=== PATIENT | male | born 1955 | race Caucasian/White ===

== ENCOUNTER → 2016-11-03 | Day surgery (SDC) | payer SELFPAY ==
[~2016-11-03] VITALS: Ht 182.9 cm; Wt 104.8 kg
[~2016-11-03] MED LIST: ALPHAGAN 05 ML/1 BOT OPHTH; COLACE100 MG PO; COSOPT EYE DROP10 ML OPHTH; DESYREL150 MG PO; IRON65 PO; LEVOTHROID (S100 MCG PO; LIPITOR10 MG PO; NOVOLOG MI100 UNIT/2 SUB-Q; NOVOLOG MI100 UNIT/M SUB-Q; PRILOSEC20 MG PO; THERA-VITE W/ B1 TAB PO; TIMOPTIC XE 0.5%5 ML OPHTH; VITAMIN B-1100 M1 PO; XALATAN2.5 ML OPHTH; ZOLOFT50 MG PO
== END | disposition disaster alternative care site (69) ==
LOC: GPOC 10-23 09:00 → GEND 07:49 → GPOC 09:00
PROC: 0DBP8ZX Excision of Rectum, Via Natural or Artificial Opening Endoscopic, Diagnostic (ICD-10-PCS; principal; 2016-11-03)
PROC: 0DBL8ZZ Excision of Transverse Colon, Via Natural or Artificial Opening Endoscopic (ICD-10-PCS; 2016-11-03)
PROC: 0DBN8ZZ Excision of Sigmoid Colon, Via Natural or Artificial Opening Endoscopic (ICD-10-PCS; 2016-11-03)
PROC: 0DJ08ZZ Inspection of Upper Intestinal Tract, Via Natural or Artificial Opening Endoscopic (ICD-10-PCS; 2016-11-03)
DX: Z12.11 Encounter for screening for malignant neoplasm of colon (principal); D12.5 Benign neoplasm of sigmoid colon; K63.5 Polyp of colon; K74.60 Unspecified cirrhosis of liver; I85.10 Secondary esophageal varices without bleeding; I86.4 Gastric varices; K62.6 Ulcer of anus and rectum; K62.89 Other specified diseases of anus and rectum; Z86.010 Personal history of colon polyps; E11.9 Type 2 diabetes mellitus without complications; K21.9 Gastro-esophageal reflux disease without esophagitis; E03.9 Hypothyroidism, unspecified; Z88.0 Allergy status to penicillin; Z98.890 Other specified postprocedural states
CPT/HCPCS: J0744; J7030

== ENCOUNTER 2016-11-11 11:43 | Observation (INO) | payer SELFPAY ==
[~2016-11-11] VITALS: Ht 182.9 cm; Wt 104.5 kg
--- NOTE | ~2016-11-11 | DS ---
[facility] AGE: 61 Y [address] ROOM: [place] [address] LOCATION: GPCU ADMIT DATE: 11/11/2016 Discharge Summary DISCHARGE DATE: 11/12/2016 FAMILY PHYSICIAN: Miguelina Alvarez ATTENDING PHYSICIAN: Coy Dhaliwal This is an observation discharge. FINAL DIAGNOSES: 1. 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 2. History of hepatitis C. 3. Thrombocytopenia. 4. Diabetes mellitus type 2, insulin using. 5. Hypothyroidism. The patient was admitted after having a TIPS procedure done by interventional radiologist, Dr. Coy Dhaliwal. HOSPITAL COURSE: The patient was admitted overnight after having the TIPS procedure. Hospitalist Service was asked to admit the patient and manage his medical problems. He was placed on PCU. He was resumed on his home medications and given sliding scale insulin for his blood sugars. His evening dose of insulin was cut in half in order to help and to ensure how well he was going to eat. An ultrasound was performed on the morning of the . There was some question of whether there was a clotting of the TIPS. I spoke with Dr. Dhaliwal personally and he stated that at this point, it was okay to go ahead and discharge the patient with a followup ultrasound in 1 week. I did share this with the patient, he did voice understanding. DISCHARGE INSTRUCTIONS: He is discharged to home. He will have an ultrasound which has been set up for November 18 at 10 a.m. his. MEDICATIONS: 1. Synthroid 1000 mcg daily. 2. Omeprazole 20 mg daily. 3. Zoloft 50 mg daily. 4. NovoLog 70/30 Mix 30 units subcutaneously in the morning 20 subcutaneously in the evening. 5. Trazodone 150 mg at bedtime. 6. Colace 100 mg daily. 7. Atorvastatin 10 mg daily. 8. Iron 65 mg twice daily. 9. Multivitamin daily. 10. Thiamine 100 mg daily. 11. Xalatan drops 1 drop at bedtime, both eyes. 12. Cosopt 1 drop every night at bedtime, both eyes. PATIENT'S NAME: [facility] AGE: 61 Y [address] ROOM: [place] [address] [facility] AD[facility] DATE: 11/11/2016 Discharge Summary DISCHARGE DATE: 11/12/2016 FAMILY PHYSICIAN: Miguelina Alvarez ATTENDING PHYSICIAN: Coy Dhaliwal. Alphagan 0.2% one drop twice daily, each eye. Overall prognosis is fair. The patient did voice understanding. ANA CRISTINA SHARMA MD LAW/modl /[id number] CC: MD Miguelina Mcguire PA d: 11/13/16131 t: 11/13/161920, DISCHARGE SUMMARY
--- NOTE | ~2016-11-11 | HP ---
PATIENT'S NAME: [facility] AGE: 61 Y [address] ROOM: [place] [address] LOCATION: GPCU ADMIT DATE: 11/11/2016 History & Physical DISCHARGE DATE: FAMILY PHYSICIAN: Miguelina Alvarez ATTENDING PHYSICIAN: MICHAEL DHALIWAL DATE OF SERVICE: CHIEF COMPLAINT: Postoperative observation. HISTORY OF PRESENT ILLNESS: A 61-year-old gentleman with a past medical history of cirrhosis, thrombocytopenia, who recently underwent upper endoscopy, which revealed gastric varices, had a procedure planned TIPS with Dr. Michael Dhaliwal today. Procedure went uneventfully and Dr. Cespedes requested the patient to be observed overnight in the hospital. On my encounter, the patient is alert, complaining of some mild abdominal pain, rating is 3/10, in the epigastric region. No fever or chills. No shortness of breath. No cough or sputum production. He denied any headache, any trouble with the eyes, any diarrhea, constipation, or any extremity swelling. REVIEW OF SYSTEMS: All other systems reviewed and were negative except what is mentioned in the HPI. PAST MEDICAL HISTORY: 1. Cirrhosis, secondary to alcohol liver disease. 2. History of hepatitis C. 3. Thrombocytopenia. 4. Type 2 diabetes mellitus, insulin dependent. 5. Hypothyroidism. PAST SURGICAL HISTORY: Colonoscopy 2 years ago. SOCIAL HISTORY: Never a smoker, 35year of alcohol use, quit 7 years ago. Still working. MEDICATIONS: Please see MAR. ALLERGIES: PENICILLIN. PATIENT'S NAME: [facility] AGE: 61 Y [address] ROOM: [place] [address] LOCATION: GPCU ADMIT DATE: 11/11/2016 History & Physical DISCHARGE DATE: FAMILY PHYSICIAN: iMguelina Alvarez ATTENDING PHYSICIAN: MICHAEL DHALIWAL FAMILY HISTORY: Negative for any liver disease. PHYSICAL EXAMINATION: VITAL SIGNS: 137/72, 51, afebrile, 16. GENERAL: No acute distress. Alert and oriented x3. HEENT: Head: Atraumatic, normocephalic. Eyes: Nonicteric. No pallor. Oropharynx: Moist mucous membranes. CARDIOVASCULAR: S1, S2. No murmurs, gallops, or rubs. NECK: Right supraclavicular area, postsurgically dressed. ABDOMEN: Soft, nontender, nondistended. Bowel sounds are present. EXTREMITIES: No clubbing, cyanosis, or edema. SKIN: Multiple tattoos noted. PSYCH: Normal affect, mood, and speech. NEURO: Cranial nerves 2 through 12 are intact. No motor or sensory deficit. MUSCULOSKELETAL: No muscle tenderness noted. No joint swelling present. LABORATORY DATA: 1. CBC done today showed hemoglobin of 15, white count of 4, and platelets of 49. INR 1.14. 2. Accu-Chek showed a glucose of 163. ASSESSMENT: 1. Cirrhosis. 2. Type 2 diabetes mellitus, insulin dependent. 3. Gastroesophageal reflux disease. 4. History of hepatitis C. 5. Status post transjugular intrahepatic portosystemic shunt. 6. Esophageal varices. 7. History of hypokalemia. PLAN: We are going to observe this patient overnight. We are going to obtain labs in the morning. Restart home medications. Decrease the evening dose of NPH 70/30 which the patient is taking at home. A.c. q.h.s. Accu-Cheks. SCDs for DVT prophylaxis. Further management depend on his course overnight in the hospital. Anticipate discharge in the morning. MD CHRISTOPHER TAMEZ/kelsi PATIENT'S NAME: [facility] AGE: 61 Y [address] ROOM: [place] [address] LOCATION: GPCU ADMIT DATE: 11/11/2016 History & Physical DISCHARGE DATE: FAMILY PHYSICIAN: Miguelina Alvarez ATTENDING PHYSICIAN: MICHAEL DHALIWAL /[id number] D: T: HISTORY & PHYSICAL
[2016-11-11 12:39] LABS: BASOPHIL % 0.3 %; EOSINOPHIL # 0.1 K/uL (0.0-0.5); EOSINOPHIL % 3.3 %; HEMOGLOBIN 15.8 g/dL (11.0-16.0); IMMATURE GRANULOCYTE % 0.5 %; LYMPHOCYTE # 0.8 K/uL (0.8-4.0); LYMPHOCYTE % 18.9 %; MCH 32.5 pg (27.0-34.0); MCHC 35.9 gm/dL (32.0-36.5); MCV 90.5 fl (83.0-98.0); MONOCYTE # 0.3 K/uL (0.0-1.0); MONOCYTE % 8.3 %; MPV 11.9 fl (9.4-12.4); NEUTROPHIL # (ANC) 2.7 K/uL (1.4-9.0); NEUTROPHIL % 68.7 %; NRBC % 0 /100WBC (0-0.00); PLATELET COUNT 49 K/uL (150-450); RBC 4.86 M/uL (3.50-5.50); RDW-CV 12.8 % (11.9-14.6)
[2016-11-11 12:47] LABS: INR - (THERAPEUTIC) 1.14 (0.92-1.07)
--- NOTE | 2016-11-11 19:15 | NUR ---
Significant Event: PATIENT UP TO FLOOR FROM PACU AT 1800. DRESSINGS TO R) IJ SITE DRY/INTACT WITH SCANT AMOUNT OF DRAINAGE, DRESSING TO R) GROIN INTACT WITH SCANT AMOUNT OF DRAINAGE. PATIENT ON BEDREST FOR 4 HOURS (START AT 1700). C/O ABDOMEN BEING TENDER, PAIN MEDICATION GIVEN IN PACU PRIOR TO COMING TO FLOOR. TAKING FLUIDS. PLEASANT WITH CARES. Follow up:
[2016-11-12 03:41] LABS: HEMATOCRIT 40.5 % (37.0-53.0); HEMOGLOBIN 14.4 g/dL (11.0-16.0); MCH 32.6 pg (27.0-34.0); MCHC 35.6 gm/dL (32.0-36.5); MCV 91.6 fl (83.0-98.0); MPV 11.5 fl (9.4-12.4); RBC 4.42 M/uL (3.50-5.50); RDW-CV 12.9 % (11.9-14.6); WBC 5.8 K/uL (4.0-11.0)
[2016-11-12 03:51] LABS: PLATELET COUNT 40 K/uL (150-450)
[2016-11-12 03:55] LABS: ALBUMIN 2.9 gm/dL (3.5-5.0); ALK PHOS 76 IU/L (33-138); ALT 74 IU/L (12-78); AST 78 IU/L (10-40); BLOOD UREA NITROGEN 7 mg/dL (6-24); CALCIUM 7.6 mg/dL (8.5-10.5); CHLORIDE 105 mMol/L (96-110); CO2 26 mMol/L (22-32); CREATININE 0.8 mg/dL (0.6-1.3); ESTIMATED GFR (MDRD EQUATION) > 60; SODIUM 139 mMol/L (135-145); TOTAL BILIRUBIN 2.7 mg/dL (0.0-1.5); TOTAL PROTEIN 6.2 g/dL (6.0-8.4)
[2016-11-12 05:01] LABS: ABSOLUTE NEUTROPHIL CT (ANC) 4.6 K/uL (1.4-9.0); BANDED NEUTROPHIL # 0.3 K/uL (0.0-0.1); BANDED NEUTROPHILS % 5 %; LYMPHOCYTE # 0.8 K/uL (0.8-4.0); LYMPHOCYTE % 14 %; MONOCYTE # 0.2 K/uL (0.0-1.0); SEGMENTED NEUTROPHIL # 4.4 K/uL (1.4-9.0); SEGMENTED NEUTROPHIL % 75 %
--- NOTE | 2016-11-12 05:11 | NUR ---
A/O. HR 50-60s. SBP 130-150s. ROOM AIR. AFEBRILE. R) IJ AND R) GROIN WITH SCANT DRAINAGE. MORPHINEx3 FOR ABD PAIN. EMESISx1 WATERY. ZOFRANx1 WITH RELIEF NOTED. TOLERATED JELLO WELL. ACHS ACCUCHECKS. VOIDS PER URINAL. NO BM. PLAN FOR DISMISSAL TODAY.
--- NOTE | 2016-11-12 15:03 | NUR ---
PATIENT DISMISSED TO HOME WITH FRIEND PER PRIVATE AUTO. PATIENT TRANSFERED TO CAR BY NURSE AID. REVIEWED DISMISSAL INSTRUCTIONS AND POST-PROCEDURE INSTRUCTIONS WITH PATIENT, HE VERBALIZED UNDERSTANDING. RETURNED HOME 70/30 INSULIN AND EYE DROPS TO PATIENT PRIOR TO DISMISSAL.
== END 2016-11-12 13:45 | disposition disaster alternative care site (69) ==
LOC: GPCU 11:43 → GCAT 11:43 → GPOC 12:30 → GPCU 17:51 → GCAT 17:52 → GPCU 11-12 13:45 → GCAT 11-12 13:45
PROVIDERS: Internal Medicine; ADMIT Radiology Diagnostic Radiology
DX: K70.30 Alcoholic cirrhosis of liver without ascites (principal); D69.6 Thrombocytopenia, unspecified; E11.9 Type 2 diabetes mellitus without complications; E03.9 Hypothyroidism, unspecified; K21.9 Gastro-esophageal reflux disease without esophagitis; Z88.0 Allergy status to penicillin; Z96.89 Presence of other specified functional implants; Z86.19 Personal history of other infectious and parasitic diseases; Z79.899 Other long term (current) drug therapy; Z87.891 Personal history of nicotine dependence; Z98.890 Other specified postprocedural states
CPT/HCPCS: C1725; C1753; C1769; C1874; C1887; C1894; G0378; J0744; J1644; J2270; J2405; J3010; J7030; P9035

== ENCOUNTER → 2016-11-18 | Outpatient (CLI) | payer SELFPAY | END | disposition disaster alternative care site (69) | LOC: GRAD 09:51 | DX: K76.6 Portal hypertension (principal) ==